=== PATIENT | female | born 1980 | race Caucasian/White ===

== ENCOUNTER 2017-11-19 13:24 | Emergency (ER) | payer OTHER ==
[~2017-11-19 13:24] MED LIST: AMOXICILLIN875 M1 PO; AMOXIL500 MG PO; AUGMENTIN 875 M1 TAB PO; BENTYL10 M1 PO; BLM PO; CYCLOBENZAPRINE10 M1 PO; EXCEDRIN MIGRAI1 TAB PO; FIORICET 325 MG1 TAB PO; FLONASE120 SPRAY/ NASB; HYCET 7.5 MG-3473 ML PO; IBUPROFEN600 M1 PO; MOTRIN 600 MG600 MG PO; NAPROXEN SOD550 MG PO; NASONEX0.05 MG/Ac INH; PERCOCET 325 MG1 TA2 PO; PROTONIX40 M3 PO; ZITHROMAX250 M2 PO; ZOFRAN ODT4 M1 SL; ZOFRAN4 MG PO
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
[2017-11-19 16:45] VITALS: BP 127/81
== END 2017-11-19 16:46 ==
LOC: ERH 13:24
DX: M25.512 Pain in left shoulder (principal); V89.2XXD Person injured in unspecified motor-vehicle accident, traffic, subsequent encounter
CPT/HCPCS: 72050; 73030-LT

== ENCOUNTER 2018-02-12 20:33 | Emergency (ER) | payer OTHER ==
[~2018-02-12] VITALS: Ht 165.1 cm; Wt 86.2 kg
[2018-02-12 20:50] VITALS: BP 112/78
[2018-02-13] MEDS ORDERED: ZITHROMAX250 M2 PO (00:06)
--- NOTE | 2018-02-13 00:07 | ED INFLUENZA/URI COMPLAINT ---
History of Present Illness General Chief Complaint: Upper Respiratory Sx/Fever Stated Complaint: SINUS INFECTION Source: patient Exam Limitations: no limitations Vital Signs & Intake/Output Vital Signs & Intake/Output Vital Signs Date Time Temp Pulse Resp B/P B/P Pulse O2 O2 Flow FiO2 Mean Ox Delivery Rate 02/13 0005 97 Room Air 02/12 2050 97.7 61 18 112/78 99 Room Air ED Intake and Output 02/13 0000 02/12 1200 Intake Total Output Total Balance Patient 190 lb Weight Weight Reported by Patient Measurement Method Allergies Coded Allergies: No Known Allergies (11/10/17) Reconcile Medications Azithromycin (Zithromax) 250 MG TABLET 1 DP PO AD sinusitis 2 the first day followed by 1 for days 2-5 Cyclobenzaprine HCl 10 MG TABLET 1 TAB PO TID PRN muscle strain Triage Note: PT FROM HOME C/O CORONADO X3 DAYS D/T SINUS INFECTION POSSIBLY? PER PT. NO DISTRESS NOTED. VSS. Triage Nurses Notes Reviewed? yes Onset: Abrupt Duration: day(s): Timing: recent history Severity: moderate, severe : No Patient currently breastfeeds: No HPI: 37-year-old female comes into the emergency room for further evaluation of sinus congestion runny nose discharge. Some associated yellow you can see discharge. Facial pressure. Denies any vomiting with some associated fever chills. Comes in for further evaluation. (Francisco Russell) Past History Travel History Traveled to [place] past 21 day No Medical History Any Pertinent Medical History? see below for history Neurological: HEADACHES EENT: sinusitis Cardiovascular: NONE Respiratory: NONE Gastrointestinal: NONE Hepatic: NONE Renal: NONE Musculoskeletal: NONE Psychiatric: NONE Endocrine: NONE Blood Disorders: NONE Cancer(s): NONE OFFICE ELECTRICIAN/Reproductive: NONE History of MRSA: No History of VRE: No History of CDIFF: No Tetanus Vaccine: 10/01/15 Surgical History Surgical History: , tubal ligation Psychosocial History Who do you live with Family Services at Home None What is your primary language Welsh Tobacco Use: Never used Family History Hx Contributory? No (Francisco Russell) Review of Systems Review of Systems Constitutional: Reports: see HPI. EENTM: Reports: see HPI. Respiratory: Reports: no symptoms. Cardiovascular: Reports: no symptoms. GI: Reports: no symptoms. Genitourinary: Reports: no symptoms. Musculoskeletal: Reports: no symptoms. Skin: Reports: no symptoms. Neurological/Psychological: Reports: no symptoms. Hematologic/Endocrine: Reports: no symptoms. Immunologic/Allergic: Reports: no symptoms. All Other Systems: Reviewed and Negative (Francisco Russell) Physical Exam Physical Exam General Appearance: well developed/nourished, no apparent distress, alert, awake Head: atraumatic, normal appearance Eyes: Bilateral: normal appearance. Ears, Nose, Throat: normal ENT inspection, hearing grossly normal Neck: normal inspection Respiratory: normal breath sounds, no respiratory distress Cardiovascular: regular rate/rhythm Back: normal inspection Extremities: normal inspection Neurologic/Psych: awake, alert, oriented x 3 Skin: intact, normal color Core Measures Sepsis Present: No Sepsis Focused Exam Completed? No (Francisco Russell) Progress Differential Diagnosis: influenza, otitis, pneumonia, pharyngitis, sinusitis Plan of Care: 02/13/2018 12:27:32 AM Patient clinically looks well. In no apparent distress. Nontoxic-appearing. SYMPTOMS CONCSISTNET WITH sinusitis. Initial ED EKG: none (Francisco Russell) Departure Departure Disposition: HOME OR SELF CARE Condition: Stable Clinical Impression Primary Impression: Acute sinusitis Referrals: Tamie Hall APRN (PCP/Family) Additional Instructions: Take Z-Jason as prescribed. Give [id number] Mucinex D. Return if any other concerns worsening symptoms. Please go over all results of today's visit with your primary care doctor. Contact your primary care doctor to let them know you were here in the emergency room. There may be nonspecific findings which may not be related to your visit today here in the emergency room but may require further evaluation and chronic monitoring by your primary care doctor. If you had a laceration today the chance of foreign body always remains. You should follow-up with your primary care doctor for recheck in 3-5 days for a wound check. If you had an x-ray done there is a chance that a fracture could have been missed on initial read and you should follow-up with your primary care doctor for repeat x-rays if symptoms persist. If your blood pressure was elevated here in the emergency room please have rechecked by the [facility] primary care doctor within the next 48. If you were prescribed a narcotic here in the emergency room or any type of controlled substances you're not allowed to drive while taking this medication or operate any type of heavy machinery. Narcotics can make you feel lightheaded dizziness nausea and can cause constipation. You may need to last picker a stool softener. Thank you for choosing [facility] emergency room. Please return to the emergency room immediately if you have any other concerns worsening of symptoms. Departure Forms: Customer Survey General Discharge Information Prescriptions: Current Visit Scripts Azithromycin (Zithromax) 1 DP PO AD #6 TAB 2 the first day followed by 1 for days 2-5 (Francisco Russell) PA/SENIOR SOLUTIONS CONSULTANT Co-Sign Statement Statement: ED Attending supervision documentation- [] I saw and evaluated the patient. I have also reviewed all the pertinent lab results and diagnostic results. I agree with the findings and the plan of care as documented in the PA's/SENIOR SOLUTIONS CONSULTANT's documentation. [x] I have reviewed the ED Record and agree with the PA's/SENIOR SOLUTIONS CONSULTANT's documentation. [] Additions or exceptions (if any) to the PAs/SENIOR SOLUTIONS CONSULTANT's note and plan are summarized below: [] (Forest POSEY,Sonu Hyman)
== END 2018-02-13 00:11 ==
LOC: ERH 20:33
DX: J01.90 Acute sinusitis, unspecified (principal)